=== PATIENT | female | born 1945 | race Caucasian/White ===

== ENCOUNTER 2016-11-27 11:50 | Emergency (ER) | payer MEDICARE ==
--- NOTE | 2016-11-27 12:24 | ED PDOC ---
HPI: CCC, URI, Sore Throat Time Seen by Provider: 11/27/16 12:23 Chief Complaint (Nursing): Cough, Cold, Congestion Chief Complaint (Provider): fever, cough History Per: Patient Past Medical History - Allergies Allergies/Adverse Reactions: Allergies Allergy/AdvReac Type Severity Reaction Status Date / Time Penicillins Allergy RASH Verified 11/27/16 12:16
[2016-11-27 12:27] VITALS: BP 154/80; PULSE 62; RESP 18; TEMP 98.2; O2SAT 99
[2016-11-27] MEDS ORDERED: Albuterol-Ipratrop 3 mg / 0.5 (3 ml) UD IH STA (12:27)
--- NOTE | 2016-11-27 12:30 | ED PDOC ---
HPI: CCC, URI, Sore Throat Time Seen by Provider: 11/27/16 12:23 Chief Complaint (Nursing): Cough, Cold, Congestion History Per: Patient (Cough x 4 days, no improvement with cough meds. No fever or SOB. Pleuritic chest pain.) Onset/Duration Of Symptoms: Days (4) Current Symptoms Are (Timing): Intermittent Episodes Associated Symptoms: Cough. denies: Fever Severity: Mild Past Medical History Vital Signs: Last Vital Signs Temp 98.2 F 11/27/16 12:25 Pulse 62 11/27/16 12:25 Resp 18 11/27/16 12:25 BP 154/80 H 11/27/16 12:25 Pulse Ox 99 11/27/16 12:30 - Medical History PMH: HTN - Family History Family History: States: Unknown Family Hx - Home Medications Home Medications: Ambulatory Orders Medication Instructions Recorded Albuterol HFA [Ventolin HFA 90 2 puff IH Q4H #1 puff 11/27/16 mcg/actuation (8 g)] Azithromycin [Zithromax] 250 mg PO DAILY #6 tab 11/27/16 - Allergies Allergies/Adverse Reactions: Allergies Allergy/AdvReac Type Severity Reaction Status Date / Time Penicillins Allergy RASH Verified 11/27/16 12:16 Review of Systems ROS Statement: Except As Marked, All Systems Reviewed And Found Negative Respiratory: Positive for: Cough Physical Exam - Reviewed Nursing Documentation Reviewed: Yes Vital Signs Reviewed: Yes - Physical Exam Appears: Positive for: Non-toxic, No Acute Distress Head Exam: Positive for: ATRAUMATIC, NORMAL INSPECTION, NORMOCEPHALIC Skin: Positive for: Normal Color, Warm, DRY ENT: Positive for: Normal ENT Inspection Neck: Positive for: Normal, Painless ROM Cardiovascular/Chest: Positive for: Regular Rate, Rhythm Respiratory: Positive for: Rhonchi. Negative for: Wheezing, Respiratory Distress Gastrointestinal/Abdominal: Positive for: Normal Exam, Bowel Sounds, Soft Back: Positive for: Normal Inspection Extremity: Positive for: Normal ROM Neurologic/Psych: Positive for: Alert, Oriented - Laboratory Results Result Diagrams: 11/27/16 12:05 11/27/16 13:00 - ECG O2 Sat by Pulse Oximetry: 99 Disposition - Clinical Impression Clinical Impression: Bronchitis - Patient ED Disposition Is Patient to be Admitted: No Counseled Patient/Family Regarding: Studies Performed, Diagnosis, Need For Followup, Rx Given - Disposition Referrals: [facility] [Outside] Disposition: Routine/Home Disposition Time: 14:06 Condition: FAIR Prescriptions: Albuterol HFA [Ventolin HFA 90 mcg/actuation (8 g)] 2 puff IH Q4H #1 puff Azithromycin [Zithromax] 250 mg PO DAILY #6 tab Instructions: Acute Bronchitis (ED) Print Language: [email or web address]
[2016-11-27] MEDS ORDERED: Albuterol-Ipratrop 3 mg / 0.5 (3 ml) UD ONE (12:38)
[2016-11-27 13:07] LABS: BASO % 0.3 % (0.0-2.0); EOS % 0.4 % (0.0-4.0); HEMATOCRIT 36.5 % (34.0-47.0); LYMPH # 3.7 K/uL (1.0-4.3); LYMPH % 30.5 % (20.0-40.0); MEAN CELL VOLUME 86.1 fl (81.0-99.0); MEAN CORPUSCULAR HEMOGLOBIN 29.4 pg (27.0-31.0); MEAN CORPUSCULAR HGB CONC 34.2 g/dL (33.0-37.0); MEAN PLATELET VOLUME 8.1 fl (7.2-11.7); MONO # 1.2 K/uL (0.0-0.8); MONO % 10.1 % (0.0-10.0); NEUT % 58.7 % (50.0-75.0); NRBC % 0.1 % (0.0-0.0); RED CELL DISTRIBUTION WIDTH 13.9 % (11.5-14.5)
[2016-11-27 13:15] LABS: ALB/GLOB RATIO 0.9 (1.0-2.1); ALKALINE PHOSPHATASE 81 U/L (38-126); ALT/SGPT 37 U/L (9-52); AST/SGOT 37 U/L (14-36); BILIRUBIN,TOTAL 0.6 mg/dl (0.2-1.3); BLOOD UREA NITROGEN 13 mg/dl (7-17); CALCIUM 9.5 mg/dL (8.4-10.2); CARBON DIOXIDE 28 mmol/L (22-30); CHLORIDE 106 mmol/L (98-107); GFR AFRICAN-AMERICAN > 60; GLUCOSE,RANDOM 137 mg/dL (65-105); POTASSIUM 4.1 MMOL/L (3.6-5.0); SODIUM 147 mmol/l (132-148); TOTAL PROTEIN 7.8 G/DL (6.3-8.2)
--- NOTE | 2016-11-27 15:29 | RAD ---
HISTORY: Cough. COMPARISON: 01/25/2013. FINDINGS: LUNGS: No active pulmonary disease. PLEURA: No significant pleural effusion identified, no pneumothorax apparent. CARDIOVASCULAR: Prompt cardiovascular silhouette, particularly pulmonary arteries consistent with, not diagnostic of pulmonary arterial hypertension. OSSEOUS STRUCTURES: No significant abnormalities. VISUALIZED UPPER ABDOMEN: Normal. OTHER FINDINGS: None. IMPRESSION: No active disease. No significant interval change compared to the prior examination(s).
== END 2016-11-27 14:42 | disposition home or self-care (01) ==
LOC: H.ER 11:50
DX: J40 Bronchitis, not specified as acute or chronic (principal); I10 Essential (primary) hypertension; J02.9 Acute pharyngitis, unspecified; R05 Cough; R07.81 Pleurodynia; Z88.0 Allergy status to penicillin

== ENCOUNTER 2018-03-21 09:08 | Emergency (ER) | payer MEDICARE ==
[2018-03-21 09:15] VITALS: BMI 30.2
--- NOTE | 2018-03-21 10:05 | ED PDOC ---
HPI: Skin/Bite Injury Time Seen by Provider: 03/21/18 09:20 Chief Complaint (Nursing): Abnormal Skin Integrity Chief Complaint (Provider): Pimple History Per: Patient History/Exam Limitations: no limitations Onset/Duration Of Symptoms: Days (3x) Current Symptoms Are (Timing): Still Present Additional Complaint(s): 72 year old female presents to the ED for an evaluation of pimple on the breast area. Patient tried to pop the pimple 3 days ago, developing redness on the area. Denies fever, pain, headache, nausea, vomiting or rashes on any other parts of the body. PMD: [facility] Past Medical History Reviewed: Historical Data, Nursing Documentation, Vital Signs Vital Signs: Last Vital Signs Temp 98.4 F 03/21/18 09:14 Pulse 57 L 03/21/18 09:14 Resp 20 03/21/18 09:14 BP 146/81 03/21/18 09:14 Pulse Ox 97 03/21/18 10:12 - Medical History PMH: HTN - Family History Family History: States: Unknown Family Hx - Social History Current smoker - smoking cessation education provided: Yes (Heavy Smoker > 10 Cigarettes Daily) Alcohol: None Drugs: Denies - Home Medications Home Medications: Ambulatory Orders Medication Instructions Recorded Albuterol HFA [Ventolin HFA 90 2 puff IH Q4H #1 puff 11/27/16 mcg/actuation (8 g)] Azithromycin [Zithromax] 250 mg PO DAILY #6 tab 11/27/16 Clindamycin [Cleocin] 300 mg PO QID 7 Days cap 03/21/18 Ibuprofen [Motrin] 600 mg PO TID 7 Days tab 03/21/18 - Allergies Allergies/Adverse Reactions: Allergies Allergy/AdvReac Type Severity Reaction Status Date / Time Penicillins Allergy RASH Verified 11/27/16 12:16 Review of Systems ROS Statement: Except As Marked, All Systems Reviewed And Found Negative Constitutional: Negative for: Fever Gastrointestinal: Negative for: Nausea, Vomiting, Abdominal Pain Skin: Positive for: Other (pimple on the breast area) Neurological: Negative for: Headache Physical Exam - Reviewed Nursing Documentation Reviewed: Yes Vital Signs Reviewed: Yes - Physical Exam Appears: Positive for: Non-toxic, No Acute Distress Head Exam: Positive for: ATRAUMATIC, NORMAL INSPECTION, NORMOCEPHALIC Skin: Positive for: Rash (Right medial chest area 1cm induration, erythematous area, no fluctuance or discharge) Eye Exam: Positive for: Normal appearance Cardiovascular/Chest: Positive for: Regular Rate, Rhythm. Negative for: Murmur Respiratory: Positive for: Normal Breath Sounds. Negative for: Decreased Breath Sounds, Wheezing, Respiratory Distress Neurologic/Psych: Positive for: Alert, Oriented (x3), Gait (steady). Negative for: Motor/Sensory Deficits - ECG O2 Sat by Pulse Oximetry: 97 (RA) Pulse Ox Interpretation: Normal Medical Decision Making Medical Decision Making: Time: 1001 Initial Impression: cellulitis Initial Plan: --Motrin 600mg --Reevaluation Upon provider evaluation patient is medically stable, and requires no further treatment in the ED at this time. Patient will be discharged with Cleocin 300mg and Motrin 600mg for cellulitis and erysipelas. Counseling was provided and all questions were answered regarding diagnosis and need for follow up with [facility]. There is agreement to discharge plan. Return if symptoms persist or worsen. Scribe Attestation: Documented by Pavan Posada, acting as a scribe for Chuckie Prescott MD Provider Scribe Attestation: All medical record entries made by the Scribe were at my direction and personally dictated by me. I have reviewed the chart and agree that the record accurately reflects my personal performance of the history, physical exam, medical decision making, and the department course for this patient. I have also personally directed, reviewed, and agree with the discharge instructions and disposition. Disposition - Clinical Impression Clinical Impression: Cellulitis - Disposition Referrals: [facility] [Outside] - 03/22/18 Condition: STABLE Additional Instructions: Return if not better in 3 days. Prescriptions: Clindamycin [Cleocin] 300 mg PO QID 7 Days cap Ibuprofen [Motrin] 600 mg PO TID 7 Days tab Instructions: Cellulitis and Erysipelas (Skin Infections) Print Language: [id number]
[2018-03-21 10:31] VITALS: BP 132/72; PULSE 76; RESP 17; TEMP 98; O2SAT 100
== END 2018-03-21 10:30 | disposition home or self-care (01) ==
LOC: H.ER 09:08
DX: L03.319 Cellulitis of trunk, unspecified (principal); Z88.0 Allergy status to penicillin